=== PATIENT | male | born 1960 | race Caucasian/White ===

== ENCOUNTER 2017-09-07 16:48 | Emergency (ER) | payer OTHER ==
[2017-09-07 17:08] VITALS: BP 138/99; RESP 18; TEMP 98.9; O2SAT 98
--- NOTE | 2017-09-07 17:23 | ED PDOC ---
HPI: CCC, URI, Sore Throat Time Seen by Provider: 09/07/17 17:14 Chief Complaint (Nursing): Chest Pain History Per: Patient Onset/Duration Of Symptoms: Days (2) Current Symptoms Are (Timing): Still Present Location Of Pain: Throat Associated Symptoms: Fever, Cough, Sputum, Myalgias Severity: Moderate Additional Complaint(s): Fever cough productivew white sputum assoc with bodyaches and sore throat x 2 days. Past Medical History Vital Signs: Last Vital Signs Temp 98.9 F 09/07/17 17:06 Pulse 90 09/07/17 17:06 Resp 18 09/07/17 17:06 BP 138/99 H 09/07/17 17:06 Pulse Ox 98 09/07/17 17:06 - Medical History PMH: No Chronic Diseases - Family History Family History: States: Unknown Family Hx - Immunization History Hx Tetanus Toxoid Vaccination: No Hx Influenza Vaccination: No Hx Pneumococcal Vaccination: No - Home Medications Home Medications: Ambulatory Orders Medication Instructions Recorded Naproxen [Naprosyn] 500 mg PO Q12H #20 tab 09/07/17 Oseltamivir [Tamiflu] 75 mg PO BID #10 cap 09/07/17 - Allergies Allergies/Adverse Reactions: Allergies Allergy/AdvReac Type Severity Reaction Status Date / Time No Known Allergies Allergy Verified 08/14/15 12:21 Review of Systems ROS Statement: Except As Marked, All Systems Reviewed And Found Negative Constitutional: Positive for: Fever, Malaise ENT: Positive for: Throat Pain Respiratory: Positive for: Cough Physical Exam - Reviewed Nursing Documentation Reviewed: Yes Vital Signs Reviewed: Yes - Physical Exam Appears: Positive for: Non-toxic, No Acute Distress Head Exam: Positive for: ATRAUMATIC, NORMAL INSPECTION, NORMOCEPHALIC Skin: Positive for: Normal Color, Warm, DRY Eye Exam: Positive for: EOMI, Normal appearance, PERRL ENT: Positive for: Normal ENT Inspection Neck: Positive for: Normal, Painless ROM Cardiovascular/Chest: Positive for: Regular Rate, Rhythm Respiratory: Positive for: CNT, Normal Breath Sounds Gastrointestinal/Abdominal: Positive for: Normal Exam, Bowel Sounds, Soft Back: Positive for: Normal Inspection Extremity: Positive for: Normal ROM Neurologic/Psych: Positive for: Alert, Oriented - ECG O2 Sat by Pulse Oximetry: 98 Disposition - Clinical Impression Clinical Impression: Influenza - Patient ED Disposition Is Patient to be Admitted: No Counseled Patient/Family Regarding: Diagnosis, Need For Followup, Rx Given - Disposition Referrals: [facility] [place] [Outside] Disposition: Routine/Home Disposition Time: 17:23 Condition: FAIR Prescriptions: Naproxen [Naprosyn] 500 mg PO Q12H #20 tab Oseltamivir [Tamiflu] 75 mg PO BID #10 cap Instructions: Flu, Adult (DC)
[2017-09-07 17:29] VITALS: PULSE 74
== END 2017-09-07 19:04 | disposition home or self-care (01) ==
LOC: H.ER 16:48
DX: J11.1 Influenza due to unidentified influenza virus with other respiratory manifestations (principal)